=== PATIENT | male | born 1995 | race Hispanic/Latino ===

== ENCOUNTER 2021-10-29 10:22 | Inpatient (IN) | payer SELFPAY ==
[2021-10-29] MEDS ORDERED: Ondansetron PF 4 MG/2 ML Vial ONE (11:45)
[2021-10-29 11:51] LABS: Bilirubin Neg (Negative); Blood, Urine 25 (Negative); Clarity Clear (Clear); Glucose, Urine (Dipstick) >=1000 mg/dL (Negative); Ketone, Urine 150 mg/dL (Negative); Leukocyte Negative (Negative); Nitrite Negative (Negative); Protein, Urine (Dipstick) 30 mg/dl (Neg-Trace); Urobilinogen Normal mg/dL (Less than 2)
[2021-10-29 11:54] LABS: #Basophils 0.1 10x3/uL (0.0-0.2); #Neutrophils 11.9 10x3/uL (1.5-8.4); %Basophils 0.6 % (0.0-2.0); %Eosinophils 0.3 % (0.0-6.0); %Lymphocytes 5.7 % (18.0-47.0); %Monocytes 6.9 % (0.0-10.0); %Neutrophils 85.6 % (40.0-75.0); Hemoglobin 16.4 g/dL (13.5-17.5); Mean Corpuscular HGB CONC 31.4 g/dL (32.0-36.0); Mean Corpuscular Hemoglobin 25.4 pg (27.0-33.0); Mean Corpuscular Volume 80.8 fl (81.2-95.1); Mean Platelet Volume 12.8 fl (7.4-10.4); Platelet Count 202 10x3/uL (150-450); RBC Distribution Width 13.8 % (11.5-14.5); Red Blood Cell (RBC) Count 6.46 10x6/uL (4.32-5.72); White Blood Cell (WBC) Count 13.9 10x3/uL (3.5-10.5)
[2021-10-29 12:10] LABS: ALT (SGPT) 268 U/L (8-55); AST (SGOT) 282 U/L (5-34); Albumin 4.9 g/dL (3.5-5.0); Alkaline Phosphatase 165 U/L (40-110); Anion Gap 28 mmol/L (10-20); BUN (Urea Nitrogen) 13 mg/dL (8.9-20.6); Bilirubin, Total 1.2 mg/dL (0.2-1.2); Calc. Creatinine Clearance 0 mL/min (70-130); Calcium 9.8 mg/dL (7.8-10.44); Carbon Dioxide 10 mmol/L (22-29); Chloride 100 mmol/L (98-107); Globulin 4.7 g/dL (2.4-3.5); Lipase 26 U/L (8-78); Potassium 4.4 mmol/L (3.5-5.1); Protein, Total 9.6 g/dL (6.0-8.3); Sodium 134 mmol/L (136-145)
[2021-10-29 12:13] LABS: Bacteria/HPF None Seen HPF (None Seen); RBC/HPF 0-3 HPF (0-3); WBC/HPF 0-3 HPF (0-3)
[2021-10-29 12:17] LABS: Glucose 613 mg/dL (70-105)
[2021-10-29] MEDS ORDERED: Insulin Regular 300 UNITS/3 ML VIAL ONE (12:32)
[2021-10-29] MEDS ORDERED: INSULIN REGULAR IN 0.9 % NACL 100 UNIT/100 ML BAG ONE (12:32)
[2021-10-29 12:36] LABS: Actual Bicarbonate (HCO3v) 9 mEq/L (22-28); Base Excess -18.9 mEq/L (-2.0 to +3.0); Calcium, Ionized (venous) 1.22 mmol/L (1.16-1.32); Chloride (VBG) 101 mmol/L (98-106); Hemoglobin (Hb) 16.3 g/dL (13.2-17.3); Potassium (VBG) 4.92 mmol/L (3.70-5.30); Puncture Site Other Site; pH (venous) 7.11 (7.32-7.43)
[2021-10-29] MEDS ORDERED: Sodium Chloride 0.9% 1,000 ML IV PRN ×4 (12:52)
[2021-10-29] MEDS ORDERED: NS 0.9% w/ 20 MEQ KCL 1,000 ML IV PRN ×2 (12:52)
[2021-10-29] MEDS ORDERED: Dextrose 5 %-0.45 % NaCl 1,000 ML IV PRN (12:52)
[2021-10-29] MEDS ORDERED: Electrolyte Replacement Protocol 1 EACH IVPB SCH (12:52)
[2021-10-29] MEDS ORDERED: CCU Insulin Drip FS ONE (12:57)
[2021-10-29 13:47] LABS: Anion Gap 26 mmol/L (10-20); BUN (Urea Nitrogen) 12 mg/dL (8.9-20.6); Calc. Creatinine Clearance 0 mL/min (70-130); Chloride 108 mmol/L (98-107); Glucose 508 mg/dL (70-105); Magnesium 2.1 mg/dL (1.6-2.6); Phosphorus 2.7 mg/dL (2.3-4.7); Potassium 3.9 mmol/L (3.5-5.1); Sodium 139 mmol/L (136-145)
[2021-10-29 13:49] LABS: Carbon Dioxide 9 mmol/L (22-29)
[2021-10-29 14:13] LABS: SARS-CoV-2 NAA Rapid Test Not Detected (NotDetected)
[2021-10-29 15:17] VITALS: BMI 45.6
[2021-10-29] MEDS: Famotidine 20 MG TAB PO PRN (15:31)
[2021-10-29] MEDS: INSULIN REGULAR IN 0.9 % NACL 100 UNIT in Premix Bag 1 BAG IVPB SCH ×2 (15:33→18:52)
[2021-10-29] MEDS ORDERED: FLU VACC QS2021-22(6MOS UP)/PF 60 MCG/0.5 ML SYRINGE IM ONE (16:00)
[2021-10-29] MEDS ORDERED: Prevnar 13-Val Conj/PF 0.5 ML SYRINGE IM ONE (16:00)
[2021-10-29 18:54] LABS: Anion Gap 20 mmol/L (10-20); BUN (Urea Nitrogen) 9 mg/dL (8.9-20.6); Calc. Creatinine Clearance 208 mL/min (70-130); Calcium 8.9 mg/dL (7.8-10.44); Carbon Dioxide 12 mmol/L (22-29); Chloride 110 mmol/L (98-107); Glucose 268 mg/dL (70-105); Potassium 3.8 mmol/L (3.5-5.1); Sodium 138 mmol/L (136-145)
[2021-10-29 19:02] LABS: Alcohol Less than 10 mg/dL (Less than 10); Cardiac Risk 4.6 (Less than 4.5); Cholesterol 91 mg/dl (< 200 Desired); HDL Cholesterol 20 mg/dL (>60 Neg Risk); LDL Cholesterol, Calculated 36 mg/dL; Phosphorus 1.6 mg/dL (2.3-4.7); Triglycerides 176 mg/dL (Less than 150)
[2021-10-29 19:15] LABS: ALV-art Gradient 30.705 mmHg (0-20); Actual Bicarbonate (HCO3a) 12.1 mEq/L (22-28); Base Excess (BEa) -12.6 mEq/L (-2.0 to +3.0); CO2 Tension 26.1 mmHg (35.0-45.0); Calcium, Ionized (arterial) 1.24 mmol/L (1.12-1.30); Carboxyhemoglobin (COHb) 0.4 gm% (0.0-3.0); Hemoglobin (Hb) 15.1 g/dL (14.0-18.0); O2 Tension (PaO2), arterial 86.4 mmHg (80.0-100.0); Potassium - ABG Lab 3.5 mmol/L (3.70-5.30); Puncture Site LRA; pH, Arterial 7.29 (7.35-7.45)
[2021-10-29] MEDS ORDERED: Magnesium 2 GM/50 ML 2 GM in Premix Bag 1 BAG IVPB SCH (19:15)
[2021-10-29] MEDS: PHOS-NAK 1 PKT PACK PO SCH (20:00)
[2021-10-29] MEDS: Famotidine/PF 20 mg/2ml Vial SLOW IVP SCH (20:01)
[2021-10-29] MEDS: D5 1/2 NS w/20 mEq KCL 1,000 ML IV PRN (21:00)
[2021-10-29 21:02] LABS: Hemoglobin A1c 12.7 % (4.0-6.0)
[2021-10-29 21:56] LABS: Anion Gap 17 mmol/L (10-20); BUN (Urea Nitrogen) 8 mg/dL (8.9-20.6); Calc. Creatinine Clearance 204 mL/min (70-130); Calcium 8.9 mg/dL (7.8-10.44); Carbon Dioxide 12 mmol/L (22-29); Chloride 113 mmol/L (98-107); Glucose 139 mg/dL (70-105); Sodium 138 mmol/L (136-145)
[2021-10-29 21:57] LABS: Potassium 4.3 mmol/L (3.5-5.1)
[2021-10-30] MEDS: PHOS-NAK 1 PKT PACK PO SCH ×5 (01:31→18:00)
[2021-10-30] MEDS: D5 1/2 NS w/20 mEq KCL 1,000 ML IV PRN ×2 (01:31→05:16)
[2021-10-30 03:53] LABS: Anion Gap 13 mmol/L (10-20); BUN (Urea Nitrogen) 7 mg/dL (8.9-20.6); Calc. Creatinine Clearance 233 mL/min (70-130); Calcium 8.4 mg/dL (7.8-10.44); Carbon Dioxide 14 mmol/L (22-29); Chloride 113 mmol/L (98-107); Glucose 240 mg/dL (70-105); Potassium 3.9 mmol/L (3.5-5.1); Sodium 136 mmol/L (136-145)
[2021-10-30 03:55] LABS: Magnesium 2.1 mg/dL (1.6-2.6)
[2021-10-30 03:56] LABS: Phosphorus 1.3 mg/dL (2.3-4.7)
[2021-10-30] MEDS: INSULIN REGULAR IN 0.9 % NACL 100 UNIT in Premix Bag 1 BAG IVPB SCH (05:16)
[2021-10-30 06:44] LABS: ALT (SGPT) 241 U/L (8-55); AST (SGOT) 234 U/L (5-34); Albumin 3.4 g/dL (3.5-5.0); Alkaline Phosphatase 107 U/L (40-110); Bilirubin, Direct 0.4 mg/dL (0.1-0.3); Protein, Total 6.1 g/dL (6.0-8.3)
[2021-10-30 06:51] LABS: Bilirubin, Total 0.5 mg/dL (0.2-1.2)
[2021-10-30] MEDS ORDERED: Lantus 1000 UNITS/10 ML VIAL SC SCH ×2 (08:30)
[2021-10-30] MEDS: Famotidine 20 MG TAB PO PRN (08:59)
[2021-10-30] MEDS ORDERED: Dextrose 50% Abboject 50 ML SYRINGE SLOW IVP PRN (10:10)
[2021-10-30] MEDS ORDERED: Dextrose 5% in Water 1,000 ML IV PRN (10:10)
[2021-10-30] MEDS: Famotidine/PF 20 mg/2ml Vial SLOW IVP SCH ×2 (10:48→20:40)
[2021-10-30 11:30] LABS: Anion Gap 10 mmol/L (10-20); BUN (Urea Nitrogen) 6 mg/dL (8.9-20.6); Calc. Creatinine Clearance 259 mL/min (70-130); Calcium 8.5 mg/dL (7.8-10.44); Carbon Dioxide 20 mmol/L (22-29); Chloride 109 mmol/L (98-107); Glucose 201 mg/dL (70-105); Potassium 3.6 mmol/L (3.5-5.1); Sodium 135 mmol/L (136-145)
[2021-10-30] MEDS: HumaLOG 300 UNITS/3 ML VIAL SC PRN ×3 (11:59→20:40)
[2021-10-30 13:21] LABS: Amphetamine Not Detected (NotDetected); Barbiturates Screen Not Detected (NotDetected); Benzodiazepine Screen Not Detected (NotDetected); Cocaine Metabolite Screen Not Detected (NotDetected); Methadone Not Detected (NotDetected); Methamphetamine Not Detected (NotDetected); Opiate Screen Not Detected (NotDetected); Oxycodone Screen Not Detected (NotDetected); Phencyclidine (PCP) Not Detected (NotDetected); THC/Cannabinoid Screen Not Detected (NotDetected); Tricyclic Screen Not Detected (NotDetected)
[2021-10-31] MEDS: HumaLOG 300 UNITS/3 ML VIAL SC PRN ×4 (01:45→20:39)
[2021-10-31 04:57] LABS: Anion Gap 16 mmol/L (10-20); BUN (Urea Nitrogen) 4 mg/dL (8.9-20.6); Calc. Creatinine Clearance 277 mL/min (70-130); Calcium 8.5 mg/dL (7.8-10.44); Carbon Dioxide 17 mmol/L (22-29); Chloride 107 mmol/L (98-107); Glucose 274 mg/dL (70-105); Potassium 3.5 mmol/L (3.5-5.1); Sodium 136 mmol/L (136-145)
[2021-10-31 05:01] LABS: Phosphorus 2.8 mg/dL (2.3-4.7)
[2021-10-31] MEDS ORDERED: Potassium Chloride 20 MEQ TAB PO SCH (08:00)
[2021-10-31] MEDS: Famotidine 20 MG TAB PO PRN (08:43)
[2021-10-31] MEDS: Lantus 1000 UNITS/10 ML VIAL SC SCH (08:43)
[2021-10-31] MEDS ORDERED: Lantus 1000 UNITS/10 ML VIAL SC SCH (09:00)
[2021-10-31 09:39] LABS: ALT (SGPT) 347 U/L (8-55); AST (SGOT) 321 U/L (5-34); Albumin 3.4 g/dL (3.5-5.0); Alkaline Phosphatase 108 U/L (40-110); Bilirubin, Direct 0.4 mg/dL (0.1-0.3); Bilirubin, Total 0.7 mg/dL (0.2-1.2); Protein, Total 6.4 g/dL (6.0-8.3)
[2021-10-31] MEDS: Famotidine/PF 20 mg/2ml Vial SLOW IVP SCH ×2 (11:23→20:39)
[2021-11-01 05:05] LABS: Anion Gap 18 mmol/L (10-20); BUN (Urea Nitrogen) 4 mg/dL (8.9-20.6); Calc. Creatinine Clearance 287 mL/min (70-130); Calcium 8.7 mg/dL (7.8-10.44); Carbon Dioxide 17 mmol/L (22-29); Chloride 106 mmol/L (98-107); Glucose 315 mg/dL (70-105); Potassium 3.7 mmol/L (3.5-5.1); Sodium 137 mmol/L (136-145)
[2021-11-01] MEDS: HumaLOG 300 UNITS/3 ML VIAL SC PRN ×3 (05:41→10:28)
[2021-11-01] MEDS: Famotidine 20 MG TAB PO PRN (08:52)
[2021-11-01] MEDS: Lantus 1000 UNITS/10 ML VIAL SC SCH (08:52)
[2021-11-01] MEDS: Famotidine/PF 20 mg/2ml Vial SLOW IVP SCH (10:14)
[2021-11-01 12:13] VITALS: BP 132/78; TEMP 97.4
== END 2021-11-01 13:45 | disposition home or self-care (01) | DRG 638 ==
LOC: CSHERS 10:22 → CSHICU 14:37 → CSHTELE 10-30 16:09
PROVIDERS: ADMIT Family Medicine; ATTEND Internal Medicine
DX: E11.10 Type 2 diabetes mellitus with ketoacidosis without coma (principal); N17.9 Acute kidney failure, unspecified; Z68.42 Body mass index [BMI] 45.0-49.9, adult; E66.9 Obesity, unspecified; Z20.822 Contact with and (suspected) exposure to COVID-19; K75.81 Nonalcoholic steatohepatitis (NASH); Z88.0 Allergy status to penicillin; Z88.8 Allergy status to other drugs, medicaments and biological substances
CPT/HCPCS: 0240U; 36415; 36416; 36600; 71045; 76705; 80048; 80053; 80061; 80076; 80306; 80307; 81003; 81015; 82010; 82805; 83036; 83525; 83605; 83690; 83735; 83930; 84100; 84443; 84681; 85025; 87040; 93005; 93010; 96365; 96375; 96376; J1815; J2405; J3475; J3480; S0028